=== PATIENT | male | born 1980 | race Caucasian/White ===

== ENCOUNTER → 2024-01-31 12:53 | Outpatient (REF) | payer BC, SELFPAY | LOC: ECG 12:53 | PROVIDERS: ATTENDING PHYSICIAN Specialist; FAMILY PHYSICIAN Family Medicine | DX: K58.0 Irritable bowel syndrome with diarrhea (principal) | CPT/HCPCS: 93005 ==

== ENCOUNTER → 2025-01-06 09:18 | Outpatient (REF) | payer BC, SELFPAY | LOC: RCS 09:18 | PROVIDERS: ATTENDING PHYSICIAN Specialist; FAMILY PHYSICIAN Family Medicine | DX: K65.0 Generalized (acute) peritonitis (principal) | CPT/HCPCS: 93005 ==